=== PATIENT | female | born 1965 | race Hispanic/Latino ===

== ENCOUNTER 2017-05-10 10:00 | Day surgery (SDC) | payer OTHER ==
[~2017-05-10] VITALS: Ht 162.6 cm; Wt 72.6 kg
[~2017-05-10 10:00] MED LIST: 0.9% Sodium Chloride 1,000 ML IV SCH; NO ACTIVE MEDS; Sodium Chloride LOK Flush 10 mL Syringe IV PRN; fentaNYL-PF 50 mCg/mL 2 mL Inj IVPUSH PRN
[2017-05-10 10:29] VITALS: BP 122/62; PULSE 55; RESP 16; O2SAT 100
--- NOTE | 2017-05-10 11:15 | PCM.ENDCOL ---
Colonoscopy Date of Service: May 10, 2017 Physician Ming Banegas MD Pre Procedure Diagnosis: Screening colon cancer Post Procedure Dx & Findings: Polyp hemorrhoids Procedure Colonoscopy PROCEDURE IN DETAIL: Prep adequate Withdrawal time 13 minutes After unremarkable rectal examination the Olympus video colonoscope was inserted patient's anal canal and was advanced to cecum. Landmarks were identified including the ileocecal valve and appendiceal orifice. Scope was withdrawn systematically. Visualized colonic mucosa showed healthy shiny mucosa with normal healthy-appearing vasculature. In the transverse colon, there was a 3 mm polyp which was removed completely using cold snare. In the descending colon there was a 1 mm polyp which was removed completely using cold forceps. In the rectum, there was a 1 mm polyp which was removed completely using cold forceps. In the rectum retroflexion was done which showed hemorrhoids. Anal canal was inspected carefully on the way out and hemorrhoids noted. Impression Polyp 3 status post complete removal Hemorrhoids Recommendation Repeat colonoscopy 3 years Presedation Assessment Risks and Benefits Informed consent was obtained from the patient after all risks and benefits including but not limited to drug reaction, infection, pain, bleeding, perforation, as well as alternatives were discussed. Patient monitoring Continuous pulse oximetry, cardiac monitoring, blood pressure monitoring, IV access, and oxygen at 2L per nasal cannula. Periprocedural Fentanyl: Fentanyl 100mcg Incrementally Midazolam: Midazolam 5mg Incrementally Complications There were no periprocedural complications identified. Post Procedure Plan Post Procedure Recommendations 1. Restrict activities today. 2. Resume normal activities in the morning. 3. Resume medications. 4. Patient informed of normal post procedure side effects as bloating, drowsiness, blood streaking in the stool. 5. average risk CRCS. If colon polyps come back as: -Hyperplastic- can repeat colonoscopy in 10 years -Tubular adenoma- repeat colonoscopy in 5 years -Tubulovillous/villous adenoma- repeat colonoscopy in 3 years -If any dysplasia- return to clinic as soon as possible 6. Please don't hesitate to call me with any questions. Ming Banegas MD May 10, 2017 11:15
[2017-05-10 11:20] VITALS: BP 95/55; PULSE 54; RESP 16; O2SAT 97
[2017-05-10 11:30] VITALS: BP 102/65; PULSE 55; RESP 16; O2SAT 99
--- NOTE | 2017-05-11 16:55 | PATH ---
SURGICAL PATHOLOGY Attending Physician:Ming Banegas M.D. CASE STATUS: Signed Out PATIENT NAME: NARA BARRETT PID: [id number] : 1965 DATE COLLECTED:05/10/2017 21:20 SPECIMEN: 1: Colon, Polyp 2: Colon, Polyp 3: Rectum, Biopsy CLINICAL HISTORY: COLON POLYPS 1). TRANSVERSE COLON POLYP X1 2). DESCENDING COLON POLYP X1 3). RECTAL POLYP X1 FINAL DIAGNOSIS: 1.TRANSVERSE COLON POLYP, BIOPSY: TUBULAR ADENOMA. 2.DESCENDING COLON POLYP, BIOPSY: TUBULAR ADENOMA. 3.RECTAL POLYP, BIOPSY: HYPERPLASTIC POLYP. ICD10 D12.6 GROSS DESCRIPTION: The specimen is received in three formalin filled containers labeled with the patient's name. 1). The specimen is labeled "transverse colon polyp" and consists of 2 extremely tiny portions of tissue which aggregate to 0.2 x 0.1 x 0.1 CM. The specimen is entirely submitted in cassette 1A. 2). The specimen is labeled "descending colon polyp" and consists of a 0.3 x 0.2 x 0.2 CM portion of tissue which is entirely submitted in cassette 2A. 3). The specimen is labeled "rectal polyp" and consists of a 0.2 x 0.2 x 0.2 CM portion of tissue which is entirely submitted in cassette 3A. 05/10/2017DC MICRO DESCRIPTION: See diagnosis. ICD-9 CODES: CPT CODES: 1: 17642 2: 86724 3: 07671 Electronically Signed Out Sohan Matta MD, Ph.D. [facility] Pathology [facility] [address] [place] [address], [place] [address] Technical component performed at [facility], [facility] [address], [address]
== END 2017-05-10 23:59 | disposition home or self-care (01) ==
LOC: END 10:00
PROVIDERS: ATTEND Internal Medicine
DX: Z12.11 Encounter for screening for malignant neoplasm of colon (principal); D12.3 Benign neoplasm of transverse colon; D12.4 Benign neoplasm of descending colon; K62.1 Rectal polyp; K64.9 Unspecified hemorrhoids
CPT/HCPCS: 45380; 45385; 99153; G0500; J2250; J3010; J7030